=== PATIENT | male | born 1955 | race Caucasian/White ===

== ENCOUNTER 2021-06-25 14:37 | Emergency (ER) | payer SELFPAY ==
[~2021-06-25] VITALS: Ht 170.2 cm; Wt 88.6 kg
[2021-06-25 15:13] VITALS: BP 156/73
--- NOTE | 2021-06-25 21:50 | NUR ---
pt left due to wait time
== END 2021-06-25 21:51 | disposition left against medical advice (07) ==
LOC: ER 14:40
DX: H91.22 Sudden idiopathic hearing loss, left ear (principal); Z53.21 Procedure and treatment not carried out due to patient leaving prior to being seen by health care provider